=== PATIENT | male | born 1965 | race Caucasian/White ===

== ENCOUNTER → 2016-09-21 | Outpatient (REF) | payer OTHER ==
[2016-09-21 19:03] LABS: ALBUMIN/GLOBULIN RATIO 1.33 (1.00-1.93); ALKALINE PHOSPHATASE 132 U/L (45-117); ALT/SGPT 70 U/L (12-78); ANION GAP 10 MEQ/L (8-16); AST/SGOT 27 U/L (15-37); BILIRUBIN,TOTAL 0.7 MG/DL (0.2-1.0); BLOOD UREA NITROGEN 9 MG/DL (7-18); CALCIUM LEVEL 8.6 MG/DL (8.5-10.1); CARBON DIOXIDE LEVEL 26 MEQ/L (21-32); CHLORIDE LEVEL 106 MEQ/L (98-107); CHOLESTEROL LEVEL 127 MG/DL (<200); CREATININE FOR GFR 1.09 MG/DL (0.70-1.30); GLOMERULAR FILTRATION RATE > 60.0 (>56); GLUCOSE, FASTING 86 MG/DL (70-105); POTASSIUM SERUM 4.4 MEQ/L (3.5-5.1); SODIUM LEVEL 142 MEQ/L (136-145); TRIGLYCERIDES LEVEL 148 MG/DL (<150)
[2016-09-23 11:27] LABS: HEP C VIRUS AB SCREEN MEDICARE 0.1 INDEX (<0.8)
== END ==
LOC: M LABDRAW1 15:36
PROVIDERS: ATTEND Physician Assistant Medical
DX: E78.2 Mixed hyperlipidemia (principal); E11.59 Type 2 diabetes mellitus with other circulatory complications

== ENCOUNTER → 2016-10-19 | Outpatient (REF) | payer OTHER ==
[2016-10-19 20:17] LABS: FREE T4 0.81 NG/DL (0.76-1.46)
== END ==
LOC: M LABDRAW1 15:42
PROVIDERS: ATTEND Physician Assistant Medical
DX: R53.83 Other fatigue (principal)

== ENCOUNTER → 2018-02-08 | Outpatient (CLI) | payer OTHER ==
[2018-02-08 15:50] LABS: BASO # 0.1 10^3/uL (0.0-0.2); EOS # 0.1 10^3/uL (0.0-0.50); EOS % 1.3 % (0.0-3.0); HEMATOCRIT 49.4 % (42.0-52.0); HEMOGLOBIN 16.9 g/dl (13.5-17.5); IMMATURE GRANULOCYTE % 0.6 % (0-3.0); LYMPH # 1.6 10^3/uL (1.5-4.5); LYMPH % 23.8 % (24.0-44.0); MEAN CORPUSCULAR HEMOGLOBIN 29.7 pg (27.0-33.0); MEAN CORPUSCULAR HGB CONC 34.2 g/dl (32.0-36.5); MEAN CORPUSCULAR VOLUME 86.8 fl (80.0-96.0); MONO # 0.5 10^3/uL (0.0-0.8); NEUTROPHILS # 4.6 10^3/uL (1.8-7.7); NEUTROPHILS % 66.3 % (36.0-66.0); PLATELET COUNT, AUTOMATED 268 10^3/uL (150-450); RED BLOOD COUNT 5.69 10^6/uL (4.30-6.10); RED CELL DISTRIBUTION WIDTH 12.4 % (11.5-14.5); WHITE BLOOD COUNT 6.9 10^3/uL (4.0-10.0)
[2018-02-08 16:25] LABS: ALBUMIN 4.1 GM/DL (3.2-5.2); ALBUMIN/GLOBULIN RATIO 1.14 (1.00-1.93); ALKALINE PHOSPHATASE 113 U/L (45-117); ALT/SGPT 63 U/L (12-78); ANION GAP 8 MEQ/L (8-16); AST/SGOT 25 U/L (7-37); BILIRUBIN,TOTAL 0.8 MG/DL (0.2-1.0); BLOOD UREA NITROGEN 12 MG/DL (7-18); CALCIUM LEVEL 9.6 MG/DL (8.5-10.1); CARBON DIOXIDE LEVEL 28 MEQ/L (21-32); CHLORIDE LEVEL 106 MEQ/L (98-107); CREATININE FOR GFR 1.06 MG/DL (0.70-1.30); GLOMERULAR FILTRATION RATE > 60.0 (>56); GLUCOSE, FASTING 123 MG/DL (70-100); POTASSIUM SERUM 4.3 MEQ/L (3.5-5.1); SODIUM LEVEL 142 MEQ/L (136-145); TOTAL PROTEIN 7.7 GM/DL (6.4-8.2)
[2018-02-08 16:51] LABS: FOLATE 12.6 NG/ML
[2018-02-14 08:09] LABS: VITAMIN B6,PYRIDOXAL PHOSPHATE 3.4 ug/L (5.3-46.7)
== END ==
LOC: M WUC 14:32
DX: K14.6 Glossodynia (principal)

== ENCOUNTER 2018-10-24 21:02 | Emergency (ER) | payer OTHER ==
[~2018-10-24] VITALS: Ht 205.7 cm; Wt 122.0 kg
[2018-10-24 21:55] LABS: HEMOGLOBIN 17.2 g/dl (13.5-17.5); MEAN CORPUSCULAR HEMOGLOBIN 30.1 pg (27.0-33.0); MEAN CORPUSCULAR HGB CONC 34.4 g/dl (32.0-36.5); MEAN CORPUSCULAR VOLUME 87.6 fl (80.0-96.0); PLATELET COUNT, AUTOMATED 260 10^3/uL (150-450); RED BLOOD COUNT 5.71 10^6/uL (4.30-6.10); WHITE BLOOD COUNT 10.2 10^3/uL (4.0-10.0)
--- NOTE | 2018-10-24 22:06 | ECGEPIP ---
[facility] - ED Test Date: 2018-10-24 Pat Name: YORDAN MCLAUGHLIN Department: Room: - Gender: Male Laboratory Director: [place] : 1965 Requested By: HEMAL STUART Order Number: [id number] Reading MD: Bart Maldonado Measurements Intervals [place] Rate: 74 P: 14 NH: 140 QRS: 18 QRSD: 85 T: QT: 375 QTc: 418 Interpretive Statements SINUS RHYTHM NONSPECIFIC T-WAVE ABNORMALITY Comparison tracing not on file Electronically Signed on 10-24-2018 22:06:08 EDT by Bart Maldonado
[2018-10-24 22:24] LABS: ALT/SGPT 72 U/L (12-78); BILIRUBIN,DIRECT < 0.1 MG/DL (0.0-0.2); BILIRUBIN,TOTAL 0.4 MG/DL (0.2-1.0); BLOOD UREA NITROGEN 17 MG/DL (7-18); CALCIUM LEVEL 8.5 MG/DL (8.5-10.1); CARBON DIOXIDE LEVEL 25 MEQ/L (21-32); CHLORIDE LEVEL 104 MEQ/L (98-107); CREATININE FOR GFR 1.08 MG/DL (0.70-1.30); GLOMERULAR FILTRATION RATE > 60.0 (>56); GLUCOSE, FASTING 147 MG/DL (70-100); POTASSIUM SERUM 3.9 MEQ/L (3.5-5.1); SALICYLATE LEVEL < 1.7 MG/DL (5.0-30.0); SODIUM LEVEL 139 MEQ/L (136-145); TOTAL PROTEIN 7.7 GM/DL (6.4-8.2)
[2018-10-24 22:25] LABS: ACETAMINOPHEN LEVEL < 2.0 UG/ML (10.0-30.0); ETHYL ALCOHOL (ETHANOL) < 0.003 % (0.000-0.010)
[2018-10-24] MEDS ORDERED: clonazePAM 0.5 MG TAB PO ONE (22:30)
[2018-10-24 23:16] VITALS: BP 151/70
== END 2018-10-24 23:17 | disposition home or self-care (01) ==
LOC: M ED 21:02
DX: F41.1 Generalized anxiety disorder (principal); F43.10 Post-traumatic stress disorder, unspecified; Z91.030 Bee allergy status
CPT/HCPCS: 36415; 80048; 80076; 84443; 85027; 93005; 99284; G0480

== ENCOUNTER → 2019-04-24 | Outpatient (CLI) | payer OTHER ==
--- NOTE | 2019-04-24 17:00 | REP ---
MRI lumbar spine without contrast: History: Degenerative disc disease. Pain radiating to the hips. Comparison lumbar spine radiographs September 10, 2012. No other prior lumbar spine imaging. Technique: Sagittal and axial T1 and T2-weighted scans are acquired in the usual fashion with and without fat saturation. Sequences include spin echo, turbo spin-echo, and STIR imaging sequences. MRI findings: There is extensive cellular marrow pattern diffusely. No bony destructive lesion is seen. Vertebral body heights are preserved. Alignment is normal. There is no evidence of spondylolysis or spondylolisthesis. No extra vertebral abnormalities observed. Normal caliber aorta is seen. The tip of the conus medullaris is normal in position and appearance at T12-L1. There is mild degenerative disc disease at each lumbar level most pronounced at L4-5. Axial and sagittal images at L1-2 demonstrate minimal diffuse disc bulging but no other finding. Similarly the L2-3, level shows minimal disc bulging but is otherwise unremarkable. L3-4 disc level shows mild diffuse disc bulging. No foraminal narrowing or central canal stenosis is seen. At L4-5, there is a moderate sized central focal disc protrusion with a caudally extruded fragment extending over the posterior aspect of the L5 vertebral body just to the right of midline. This produces moderate thecal sac compression. There is moderate central canal stenosis due to left paracentral disc protrusion component and ligamentum flavum and facet hypertrophy. Midline AP dimension of the thecal sac at this level is 9.5 mm. No foraminal narrowing is seen on either side. At L5-S1, there is moderate facet hypertrophy bilaterally, left worse than right. There is minimal neural foraminal narrowing bilaterally 5-1 due to facet hypertrophy. Impression: Degenerative spondylosis changes. The dominant abnormality is at L4-5 where there is moderate central canal stenosis due in part to a [id number] focal disc protrusion with both left and right paracentral components. There is caudal extrusion and moderate thecal sac compression. Electronically Signed by Kirill Gatica MD 04/25/2019 12:39 P
== END ==
LOC: M RAD 14:49
PROVIDERS: ATTEND Physician Assistant
DX: M51.36 Other intervertebral disc degeneration, lumbar region (principal)

== ENCOUNTER → 2019-05-02 | Outpatient (CLI) | payer OTHER ==
[~2019-05-02] MED LIST: CONRAY-43 43% 50ML VIAL (Q9960) As Ordered ONE; PROHANCE 279.3MG/ML 5ML VIAL (A9576) As Ordered ONE
--- NOTE | 2019-05-02 09:33 | REP ---
MRI ARTHROGRAM RIGHT HIP: TECHNIQUE: Coronal T1, STIR through the pelvis, post arthrogram axial T1 fat sat, T2 fat sat, coronal T1 fat sat, T2 fat sat, sagittal T1 fat sat, axial oblique T1 fat sat right hip. The visualized osseous structures demonstrate no occult fracture. There is no evidence of avascular necrosis. There is mild to moderate chondromalacia of the right hip joint. There is mild subchondral marrow edema in the right acetabulum. There is mild acetabular spurring. There is an anterior labral tear. There is no paralabral cyst. There is a very small joint effusion. Other surrounding soft-tissue structures demonstrate no abnormal signa. The visualized intrapelvic structures are unremarkable. IMPRESSION: Anterior labral tear. 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 Very small joint effusion. Electronically Signed by Werner Rodriguez MD 05/02/2019 12:47 P
--- NOTE | 2019-05-02 16:53 | REP ---
RIGHT HIP ARTHROGRAM The procedure was performed under the direction supervision of Dr. Rodriguez. The benefits and risks including but not limited to pain, infection, bleeding and anaphylaxis were explained to the patient and informed consent was obtained. The right femoral neck was localized using fluoroscopic guidance. Skin was prepped and draped in a sterile fashion. 1% lidocaine was used as a local anesthetic. Using fluoroscopic guidance a 22 gauge spinal needle was inserted and advanced to the femoral neck. 0.5 ml of Conray 43 was injected to verify placement. 11 ml of a solution containing 20 ml of sterile saline and 0.15 ml of ProHance was injected into the joint. The needle was removed and the patient was taken to MRI for postprocedural imaging. The patient tolerated the procedure well and there were no immediate complications. Less than 6 seconds of fluoro time was utilized for this procedure. Electronically Signed by ANGELA Wayne 05/02/2019 04:02 P Electronically Signed by Werner Rodriguez MD 05/02/2019 04:44 P
== END ==
LOC: M RADPRO 06:42
PROVIDERS: ATTEND Physician Assistant
DX: S76.191A Other specified injury of right quadriceps muscle, fascia and tendon, initial encounter (principal); X58.XXXA Exposure to other specified factors, initial encounter; Y92.89 Other specified places as the place of occurrence of the external cause; Y93.89 Activity, other specified; Y99.8 Other external cause status; M94.251 Chondromalacia, right hip; M25.451 Effusion, right hip
CPT/HCPCS: 27093; 73723; 77002; A9576; Q9960

== ENCOUNTER → 2019-05-24 | Outpatient (CLI) | payer OTHER ==
[~2019-05-24] MED LIST changes: +LIDOCAINE 1% MDV 20ML VIAL As Ordered ONE; -PROHANCE 279.3MG/ML 5ML VIAL (A9576) As Ordered ONE; +TRIAMCINOLONE ACETONIDE SUSP 40 MG/ML VIAL (J3301) As Ordered ONE
--- NOTE | 2019-05-24 17:16 | REP ---
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 Rodriguez. The benefits and risks including but not limited to pain, infection, bleeding and anaphylaxis were explained to the patient and informed consent was obtained both verbally and written. Directly prior to the start of the procedure, a formal timeout was completed in the procedure room. The right femoral neck joint space was localized using fluoroscopic guidance. The skin was prepped and draped in the usual sterile fashion. 5 mL of 1% lidocaine 10 mg/ml was used as a local anesthetic. Using fluoroscopic guidance a 22-gauge spinal needle was inserted and advanced to the right femoral neck joint space . 1 mL of Conray 43 was injected to verify needle placement. A 6 mL solution containing a 5 mL 1% lidocaine 10 mg/ml and 1 ml of Kenalog 40 mg/ml was injected into the joint. The needle was removed and hemostasis was achieved. The patient tolerated the procedure well and there were no immediate complications. 0.1 minutes of fluoroscopy time was utilized for this procedure. Some fluoroscopic images are performed with last image hold technology. These images require no additional radiation. Reviewed by ANGELA Coronado 05/24/2019 04:04 P Electronically Signed by Werner Rodriguez MD 05/24/2019 05:08 P
== END ==
LOC: M RADPRO 12:43
PROVIDERS: ATTEND Physician Assistant
DX: M24.151 Other articular cartilage disorders, right hip (principal)
CPT/HCPCS: 20610; 77002; J3301; Q9960

== ENCOUNTER → 2019-09-13 | Outpatient (CLI) | payer OTHER ==
--- NOTE | 2019-09-13 11:13 | REP ---
BILATERAL MAMMOGRAM WITH 3D TOMOSYNTHESIS: Patient reports a 1-month history of a tiny superficial skin lesion in the left nipple. Bilateral mammogram is performed with 3D tomosynthesis. The breasts are prominently fatty replaced with minimal fibroglandular tissue. There is no mass or architectural distortion. No clustered microcalcifications are seen. No abnormality is seen of either nipple. IMPRESSION: BIRADS 1: BI-RADS/ACR category 1 mammogram. Negative Mammogram. ACR 1 negative mammogram. No mammographic abnormalities are detected. Recommend clinical followup of the superficial skin lesion of the left nipple. This mammogram was interpreted with the aid of an FDA-approved computer-aided detection system. A. Negative x-ray reports should not delay biopsy if a dominant or clinically suspicious mass is present. B. Four to eight percent of cancers are not identified by x-ray. C. Adenosis and dense breasts may obscure an underlying neoplasm. The patient states that she or he has not had a clinical breast exam in over a year. The patient letter being requested is M2
== END ==
LOC: M WHC 08:13
PROVIDERS: ATTEND Nurse Practitioner Family
DX: N63.20 Unspecified lump in the left breast, unspecified quadrant (principal)

== ENCOUNTER → 2021-03-25 | Outpatient (CLI) | payer OTHER ==
[~2021-03-25] MED LIST changes: +ATOR1TAB21 PO; +CLON0.5T2 PO; -CONRAY-43 43% 50ML VIAL (Q9960) As Ordered ONE; +ERGO500029 PO; -LIDOCAINE 1% MDV 20ML VIAL As Ordered ONE; +MIRT1TAB15 PO; -TRIAMCINOLONE ACETONIDE SUSP 40 MG/ML VIAL (J3301) As Ordered ONE
== END ==
LOC: M LABSMTC 09:05
PROVIDERS: ATTEND Anesthesiology
DX: Z01.812 Encounter for preprocedural laboratory examination (principal); Z20.822 Contact with and (suspected) exposure to COVID-19

== ENCOUNTER 2021-03-30 09:35 | Day surgery (SDC) | payer OTHER ==
[~2021-03-30] VITALS: Ht 185.4 cm; Wt 118.8 kg
[~2021-03-30 09:35] MED LIST changes: +NS 1,000 ML IV ONE
--- OUTSIDE RECORDS SUMMARY | 2021-03-30 09:41 | CCD ---
Author Author [facility] Address Unknown Phone Unavailable Care Team Providers Care Spice Blender Name Role Phone Dru, Darby Pena MD Unavailable Unavailable Dru, Darby Pena MD Unavailable Unavailable Dru, Darby Pena MD Unavailable Unavailable Dru, Darby Pena MD Unavailable Unavailable Dru, Darby Pena MD Unavailable Unavailable Dru, Darby Pena MD Unavailable Unavailable Dru, Darby Pena MD Unavailable Unavailable Dru, Darby Pena MD Unavailable Unavailable Dru, Darby Pena MD Unavailable Unavailable Dru, Darby Pena MD Unavailable Unavailable Dru, Darby Pena MD Unavailable Unavailable Dru, Darby Pena MD Unavailable Unavailable Dru, Darby Pena MD Unavailable Unavailable Dru, Darby Pena MD Unavailable Unavailable Dru, Darby Pena MD Unavailable Unavailable Dru, Darby Pena MD Unavailable Unavailable Dru, Darby Pena MD Unavailable Unavailable Dru, Darby Pena MD Unavailable Unavailable Dru, Darby Pena MD Unavailable Unavailable Dru, Darby Pena MD Unavailable Unavailable Dru, Darby Pena MD Unavailable Unavailable Dru, Darby Pena MD Unavailable Unavailable Dru, Darby Pena MD Unavailable Unavailable Dru, Darby Pena MD Unavailable Unavailable Dru, Darby Pena MD Unavailable Unavailable Dru, Darby Pena MD Unavailable Unavailable Dru, Darby Pena MD Unavailable Unavailable Dru, Darby Pena MD Unavailable Unavailable Dru, Darby Pena MD Unavailable Unavailable Dru, Darby Pena MD Unavailable Unavailable Dru, Darby Pena MD Unavailable Unavailable Dru, Darby Pena MD Unavailable Unavailable Dru, Darby Pena MD Unavailable Unavailable Dru, Darby Pena MD Unavailable Unavailable Dru, Darby Pena MD Unavailable Unavailable Dru, Darby Pena MD Unavailable Unavailable Dru, Darby Pena MD Unavailable Unavailable Dru, Darby Pena MD Unavailable Unavailable Dru, Darby Pena MD Unavailable Unavailable Dru, Darby Pena MD Unavailable Unavailable Dru, Darby Pena MD Unavailable Unavailable Dru, Darby Pena MD Unavailable Unavailable Dru, Darby Pena MD Unavailable Unavailable Dru, Darby Pena MD Unavailable Unavailable Dru, Darby Pena MD Unavailable Unavailable Dru, Darby Pena MD Unavailable Unavailable Dru, Darby Pena MD Unavailable Unavailable Dru, Darby Pena MD Unavailable Unavailable Dru, Darby Pena MD Unavailable Unavailable Dru, Darby Pena MD Unavailable Unavailable Dru, Darby Pena MD Unavailable Unavailable Dru, Darby Pena MD Unavailable Unavailable Dru, Darby Pena MD Unavailable Unavailable Dru, Darby Pena MD Unavailable Unavailable Dru, Darby Pena MD Unavailable Unavailable Dru, Darby Pena MD Unavailable Unavailable Dru, Darby Pena MD Unavailable Unavailable Dru, Darby Pena MD Unavailable Unavailable Dru, Darby Pena MD Unavailable Unavailable Dru, Darby Pena MD Unavailable Unavailable Dru, Darby Pena MD Unavailable Unavailable Dru, Darby Pena MD Unavailable Unavailable Dru, Darby Pena MD Unavailable Unavailable Dru, Darby Pena MD Unavailable Unavailable Dru, Darby Pena MD Unavailable Unavailable Dru, Darby Pena MD Unavailable Unavailable Dru, Darby Pena MD Unavailable Unavailable Dru, Darby Pena MD Unavailable Unavailable Dru, Darby Pena MD Unavailable Unavailable Dru, Darby Pena MD Unavailable Unavailable Dru, Darby Pena MD Unavailable Unavailable Dru, Darby Pena MD Unavailable Unavailable Dru, Darby Pena MD Unavailable Unavailable Dru, Darby Pena MD Unavailable Unavailable Dru, Darby Pena MD Unavailable Unavailable Dru, Darby Pena MD Unavailable Unavailable Dru, Darby Pena MD Unavailable Unavailable Dru, Darby Pena MD Unavailable Unavailable Dru, Darby Pena MD Unavailable Unavailable Dru, Darby Pena MD Unavailable Unavailable Dru, Darby Pena MD Unavailable Unavailable Dru, Darby Pena MD Unavailable Unavailable DRAZEK, I WILTON PA Unavailable Unavailable DRAZEK, I WILTON PA Unavailable Unavailable DRAZEK, I WILTON PA Unavailable Unavailable DRAZEK, I WILTON PA Unavailable Unavailable DRAZEK, I WILTON PA Unavailable Unavailable DRAZEK, I WILTON PA Unavailable Unavailable DRAZEK, I WILTON PA Unavailable Unavailable DRAZEK, I WILTON PA Unavailable Unavailable DRAZEK, I WILTON PA Unavailable Unavailable DRAZEK, I WILTON PA Unavailable Unavailable DRAZEK, I WILTON PA Unavailable Unavailable DRAZEK, I WILTON PA Unavailable Unavailable DRAZEK, I WILTON PA Unavailable Unavailable DRAZEK, I WILTON PA Unavailable Unavailable DRAZEK, I WILTON PA Unavailable Unavailable DRAZEK, I WILTON PA Unavailable Unavailable DRAZEK, I WILTON PA Unavailable Unavailable DRAZEK, I WILTON PA Unavailable Unavailable DRAZEK, I WILTON PA Unavailable Unavailable DRAZEK, I WILTON PA Unavailable Unavailable DRAZEK, I WILTON PA Unavailable Unavailable DRAZEK, I WILTON PA Unavailable Unavailable DRAZEK, I WILTON PA Unavailable Unavailable DRAZEK, I WILTON PA Unavailable Unavailable DRAZEK, I WILTON PA Unavailable Unavailable DRAZEK, I WILTON PA Unavailable Unavailable DRAZEK, I WILTON PA Unavailable Unavailable DRAZEK, I WILTON PA Unavailable Unavailable DRAZEK, I WILTON PA Unavailable Unavailable DRAZEK, I WILTON PA Unavailable Unavailable Re-disclosure Warning The records that you are about to access may contain information from federally-assisted alcohol or drug abuse programs. If such information is present, then the following federally mandated warning applies: This information has been disclosed to you from records protected by federal confidentiality rules (42 CFR part 2). The federal rules prohibit you from making any further disclosure of this information unless further disclosure is expressly permitted by the written consent of the person to whom it pertains or as otherwise permitted by 42 CFR part 2. A general authorization for the release of medical or other information is NOT sufficient for this purpose. The Federal rules restrict any use of the information to criminally investigate or prosecute any alcohol or drug abuse patient.The records that you are about to access may contain highly sensitive health information, the redisclosure of which is protected by Article 27-F of the [facility] Public Health law. If you continue you may have access to information: Regarding HIV / AIDS; Provided by facilities licensed or operated by the [facility] Office of Mental Health; or Provided by the [facility] Office for People With Developmental Disabilities. If such information is present, then the following [facility] mandated warning applies: This information has been disclosed to you from confidential records which are protected by state law. State law prohibits you from making any further disclosure of this information without the specific written consent of the person to whom it pertains, or as otherwise permitted by law. Any unauthorized further disclosure in violation of state law may result in a fine or senior living sentence or both. A general authorization for the release of medical or other information is NOT sufficient authorization for further disc losure. Family History Family Member Name Family Member Gender Family Member Status Date o f Status Description Data Source(s) Unknown Unknown Problem [facility] ([facility] Unknown Unknown Problem [facility] ([facility] Unknown Unknown Encounters Encounter Providers Location Date Indications Data Source(s ) Outpatient [address], [facility] [id number] 12/16/2020 12:00:00 AM EDT eCW1 ([facility]) Outpatient Attender: Becky Gonsales MD Main Office 06/09/2020 09:30:0 0 AM EST [facility] ([facility] Outpatient Attender: WILTON SCHMITT Physical Therapy 04/01/2020 1 2:15:00 PM EST [facility] ([facility]) Immunizations Vaccine Date Status Description Data Source(s) COVID-19 VACCINE Moderna 11/18/2020 12:00:00 AM EDT completed [facility] Vaccine Series Complete: YESThis Data wa s Submitted to [facility]. COVID-19 VACCINE Moderna 10/21/2020 12:00:00 AM EDT completed [facility] Vaccine Series Complete: NOThis Data was Submitted to [facility]. New in 2012. IIV4 06/09/2020 09:49:00 AM EST completed [facility] ([facility] Medications Medication Brand Name Start Date Product Form Dose Route Admi nistrative Instructions Pharmacy Instructions Status Indications Reaction Description Data Source(s) Suprep Bowel Prep Kit Suprep Bowel Prep Kit 03/02/2021 12:00:00 AM EDT active [facility] ([facility], ) Bisacodyl 5 MG Delayed Release Oral Tablet [Dulcolax] Dulcol ax 03/02/2021 12:00:00 AM EDT ORAL active M EDENT ([facility], ) meloxicam 15 MG Oral Tablet Meloxicam 04/01/2020 12:00:00 AM EST ORAL active [facility] ([facility]) Insurance Providers Payer name Policy type / Coverage type Policy ID Covered green party ID Covered green party's relationship to gonzales Policy Gonzales Plan Information [facility] Commercial [id number] Self [id number] [facility] Commercial [id number] Self [id number] [facility] [id number] SP [id number] [facility] O [id number] [employer] Commercial [id number] Self [id number] [facility] [id number] Self [id number] [employer] [id number] Self [id number] [facility] Commercial [id number] Self [id number] [facility] Health Maintenance Organization ([facility]) 00 [id number] [facility] Commercial [id number] [facility] Commercial [id number] Self [id number] [facility] Health Maintenance Organization ([facility]) 00 [id number] Self [id number] [facility] Health Maintenance Organization ([facility]) [id number] [facility] Commercial [id number] Self [facility] Commercial [id number] Self 'S ADMINISTRATION [id number] SP [id number] [facility] [id number] SP [id number] [id number] SP [id number] Problems, Conditions, and Diagnoses No Information Surgeries/Procedures Procedure Description Date Indications Data Source(s) X-Ray Hip Unilateral With Pelvis 2-3 Views 04/01/2020 12:00:00 AM EST [facility] ([facility]) Results ID Date Data Source [id number] 03/25/2021 09:00:00 AM EDT [facility] Name Value Range Interpretation Code Description Data Beverley rce(s) Supporting Document(s) SARS-CoV-2 (COVID-19) RNA [Presence] in Respiratory specimen by TAMMI with probe detection Not Detected [facility] This lab was ordered by [facility] and reported by [facility]. ID Date Data Source [id number] 06/09/2020 01:05:00 PM EST [facility] ([facility] Name Value Range Interpretation Code Description Data Beverley rce(s) Supporting Document(s) Glucose [Mass/volume] in Serum or Plasma 86 mg/dL 65-99 [facility] ([facility] A courtesy copy of this report has been sent to the patient, Urea nitrogen [Mass/volume] in Serum or Plasma 16 mg/dL 6-24 [facility] ([facility] A courtesy copy of this report has been sent to the patient, eGFR If NonAfricn Am 71 mL/min/1.73 [facility] ([facility] A courtesy copy of this report has been sent to the patient, Creatinine [Mass/volume] in Serum or Plasma 1.15 mg/dL 0.76-1.27 [facility] ([facility] A courtesy copy of this report has been sent to the patient, Sodium [Moles/volume] in Serum or Plasma 139 mmol/L 134-144 [facility] ([facility] A courtesy copy of this report has been sent to the patient, eGFR If Africn Am 82 mL/min/1.73 [facility] ([facility] A courtesy copy of this report has been sent to the patient, Urea nitrogen/Creatinine [Mass Ratio] in Serum or Plasma 14 9 -20 [facility] ([facility] A courtesy copy of this report has been sent to the patient, Carbon dioxide, total [Moles/volume] in Serum or Plasma 22 mmol/L 20 -29 [facility] ([facility] A courtesy copy of this report has been sent to the patient, Chloride [Moles/volume] in Serum or Plasma 102 mmol/L 96-106 [facility] ([facility] A courtesy copy of this report has been sent to the patient, Potassium [Moles/volume] in Serum or Plasma 4.4 mmol/L 3.5-5.2 [facility] ([facility] A courtesy copy of this report has been sent to the patient, Calcium [Mass/volume] in Serum or Plasma 9.6 mg/dL 8.7-10.2 [facility] ([facility] A courtesy copy of this report has been sent to the patient, Protein, Total 7.4 g/dL 6.0-8.5 [facility] ([facility] A courtesy copy of this report has been sent to the patient, Albumin [Mass/volume] in Serum or Plasma 4.6 g/dL 3.8-4.9 [facility] ([facility] A courtesy copy of this report has been sent to the patient, Globulin [Mass/volume] in Serum by calculation 2.8 g/dL 1.5-4.5 [facility] ([facility] A courtesy copy of this report has been sent to the patient, Albumin/Globulin [Mass Ratio] in Serum or Plasma 1.6 1.2-2.2 [facility] ([facility] A courtesy copy of this report has been sent to the patient, Alkaline phosphatase [Enzymatic activity/volume] in Serum or Plasma 105 IU/L 39-117 [facility] ([facility] A courtesy copy of this report has been sent to the patient, Bilirubin.total [Mass/volume] in Serum or Plasma 0.7 mg/dL 0.0-1.2 [facility] ([facility] A courtesy copy of this report has been sent to the patient, Aspartate aminotransferase [Enzymatic activity/volume] in Serum or Plasma 31 IU/L 0-40 [facility] ([facility] A courtesy copy of this report has been sent to the patient, Alanine aminotransferase [Enzymatic activity/volume] in Seru m or Plasma 69 IU/L 0-44 [facility] ([facility] A courtesy copy of this report has been sent to the patient, ID Date Data Source [id number] 06/09/2020 01:05:00 PM EST [facility] ([facility] Name Value Range Interpretation Code Description Data Beverley rce(s) Supporting Document(s) Hemoglobin A1c/Hemoglobin.total in Blood 5.1 % 4.8-5.6 [facility] ([facility] A courtesy copy of this report has been sent to the patient, ID Date Data Source [id number] 06/09/2020 01:05:00 PM EST [facility] ([facility] Name Value Range Interpretation Code Description Data Beverley rce(s) Supporting Document(s) Thyrotropin [Units/volume] in Serum or Plasma 1.920 uIU/mL 0.450-4.50 0 [facility] ([facility] A courtesy copy of this report has been sent to the patient, ID Date Data Source [id number] 06/09/2020 01:05:00 PM EST [facility] ([facility] Name Value Range Interpretation Code Description Data Beverley rce(s) Supporting Document(s) Triglyceride [Mass/volume] in Serum or Plasma 156 mg/dL 0-149 [facility] ([facility] A courtesy copy of this report has been sent to the patient, Cholesterol [Mass/volume] in Serum or Plasma 146 mg/dL 100-199 [facility] ([facility] A courtesy copy of this report has been sent to the patient, Cholesterol in HDL [Mass/volume] in Serum or Plasma 37 mg/dL [facility] ([facility] A courtesy copy of this report has been sent to the patient, Laboratory test finding (navigational concept) 27 mg/dL 5-40 [facility] ([facility] A courtesy copy of this report has been sent to the patient, Comment: Laboratory test result [facility] ([facility] A courtesy copy of this report has been sent to the patient, Laboratory test finding (navigational concept) 82 mg/dL 0-99 [facility] ([facility] A courtesy copy of this report has been sent to the patient, ID Date Data Source [id number] 06/09/2020 01:05:00 PM EST [facility] ([facility] Name Value Range Interpretation Code Description Data Beverley rce(s) Supporting Document(s) Leukocytes [#/volume] in Blood by Automated count 6.6 x10E3/uL 3.4-10 .8 [facility] ([facility] A courtesy copy of this report has been sent to the patient, Erythrocytes [#/volume] in Blood by Automated count 5.52 x10E6/uL 4.1 4-5.80 [facility] ([facility] A courtesy copy of this report has been sent to the patient, Hemoglobin [Mass/volume] in Blood 16.4 g/dL 13.0-17.7 [facility] ([facility] A courtesy copy of this report has been sent to the patient, Hematocrit [Volume Fraction] of Blood by Automated count 47.7 % 3 7.5-51.0 [facility] ([facility] A courtesy copy of this report has been sent to the patient, Erythrocyte mean corpuscular hemoglobin [Entitic mass] by Automated count 29.7 pg 26.6-33.0 [facility] ([facility] A courtesy copy of this report has been sent to the patient, Erythrocyte mean corpuscular volume [Entitic volume] by Auto mated count 86 fL 79-97 [facility] ([facility] A courtesy copy of this report has been sent to the patient, Erythrocyte mean corpuscular hemoglobin concentration [Mass/volume] by Automated count 34.4 g/dL 31.5-35.7 [facility] ([facility] A courtesy copy of this report has been sent to the patient, Neutrophils 65 % [facility] ([facility] A courtesy copy of this report has been sent to the patient, Erythrocyte distribution width [Ratio] by Automated count 12.1 % 11.6-15.4 [facility] ([facility] A courtesy copy of this report has been sent to the patient, Platelets [#/volume] in Blood by Automated count 245 x10E3/uL 150-450 [facility] ([facility] A courtesy copy of this report has been sent to the patient, Monocytes/100 leukocytes in Blood by Automated count 7 % [facility] ([facility] A courtesy copy of this report has been sent to the patient, Lymphocytes/100 leukocytes in Blood by Automated count 26 % [facility] ([facility] A courtesy copy of this report has been sent to the patient, Eosinophils/100 leukocytes in Blood by Automated count 1 % [facility] ([facility] A courtesy copy of this report has been sent to the patient, Immature cells [#/volume] in Blood Laboratory test result [facility] ([facility] A courtesy copy of this report has been sent to the patient, Basophils/100 leukocytes in Blood by Automated count 1 % [facility] ([facility] A courtesy copy of this report has been sent to the patient, Neutrophils [#/volume] in Blood by Automated count 4.3 x10E3/uL 1.4-7 .0 [facility] ([facility] A courtesy copy of this report has been sent to the patient, Lymphocytes [#/volume] in Blood 1.7 x10E3/uL 0.7-3.1 [facility] ([facility] A courtesy copy of this report has been sent to the patient, Monocytes [#/volume] in Blood 0.4 x10E3/uL 0.1-0.9 [facility] ([facility] A courtesy copy of this report has been sent to the patient, Basophils [#/volume] in Blood by Automated count 0.1 x10E3/uL 0.0-0.2 [facility] ([facility] A courtesy copy of this report has been sent to the patient, Eosinophils [#/volume] in Blood by Automated count 0.1 x10E3/uL 0.0-0 .4 [facility] ([facility] A courtesy copy of this report has been sent to the patient, Immature granulocytes/100 leukocytes in Blood by Automated count 0 % [facility] ([facility] A courtesy copy of this report has been sent to the patient, Immature granulocytes [#/volume] in Blood by Automated count 0.0 x10E3/uL 0.0-0.1 [facility] ([facility] A courtesy copy of this report has been sent to the patient, Nucleated erythrocytes/100 leukocytes [Ratio] in Blood by Automated count Laboratory test result [facility] ([facility] A courtesy copy of this report has been sent to the patient, Morphology [Interpretation] in Blood Narrative Laboratory test result [facility] ([facility] A courtesy copy of this report has been sent to the patient, ID Date Data Source [id number] 06/10/2020 07:05:00 AM EST [facility] Name Value Range Interpretation Code Description Data Beverley rce(s) Supporting Document(s) WBC 6.6 x10E3/uL 3.4-10.8 [facility] RBC 5.52 x10E6/uL 4.14-5.80 [facility] Hemoglobin 16.4 g/dL 13.0-17.7 [facility] Hematocrit 47.7 % 37.5-51.0 [facility] MCV 86 fL 79-97 [facility] MCH 29.7 pg 26.6-33.0 [facility] MCHC 34.4 g/dL 31.5-35.7 [facility] RDW 12.1 % 11.6-15.4 [facility] Platelets 245 x10E3/uL 150-450 [facility] Neutrophils 65 % Not Estab. [facility] Lymphs 26 % Not Estab. [facility] Monocytes 7 % Not Estab. [facility] Eos 1 % Not Estab. [facility] Basos 1 % Not Estab. [facility] Neutrophils (Absolute) 4.3 x10E3/uL 1.4-7.0 [facility] Lymphs (Absolute) 1.7 x10E3/uL 0.7-3.1 [facility] Monocytes(Absolute) 0.4 x10E3/uL 0.1-0.9 [facility] Eos (Absolute) 0.1 x10E3/uL 0.0-0.4 [facility] Baso (Absolute) 0.1 x10E3/uL 0.0-0.2 [facility] Immature Granulocytes 0 % Not Estab. [facility] Immature Grans (Abs) 0.0 x10E3/uL 0.0-0.1 [facility] ID Date Data Source [id number] 06/10/2020 10:06:00 AM EST [facility] Name Value Range Interpretation Code Description Data Beverley rce(s) Supporting Document(s) Hemoglobin A1c 5.1 % 4.8-5.6 [facility] Prediabetes: 5.7 - 6.4 Diabetes: >6.4 Glycemic control for adults with diabetes: <7.0 ID Date Data Source [id number] 06/10/2020 04:06:00 PM EST [facility] Name Value Range Interpretation Code Description Data Beverley rce(s) Supporting Document(s) Glucose 86 mg/dL 65-99 [facility] BUN 16 mg/dL 6-24 [facility] Creatinine 1.15 mg/dL 0.76-1.27 [facility] eGFR If NonAfricn Am 71 mL/min/1.73 >59 [facility] eGFR If Africn Am 82 mL/min/1.73 >59 [facility] BUN/Creatinine Ratio 14 9-20 [facility] Sodium 139 mmol/L 134-144 [facility] Potassium 4.4 mmol/L 3.5-5.2 [facility] Chloride 102 mmol/L 96-106 [facility] Carbon Dioxide, Total 22 mmol/L 20-29 [facility] Calcium 9.6 mg/dL 8.7-10.2 [facility] Protein, Total 7.4 g/dL 6.0-8.5 [facility] Albumin 4.6 g/dL 3.8-4.9 [facility] Globulin, Total 2.8 g/dL 1.5-4.5 [facility] A/G Ratio 1.6 1.2-2.2 [facility] Bilirubin, Total 0.7 mg/dL 0.0-1.2 [facility] Alkaline Phosphatase 105 IU/L 39-117 [facility] AST (SGOT) 31 IU/L 0-40 [facility] ALT (SGPT) 69 IU/L 0-44 Above high normal [facility] ID Date Data Source [id number] 06/10/2020 05:05:00 PM EST [facility] Name Value Range Interpretation Code Description Data Beverley rce(s) Supporting Document(s) TSH 1.920 uIU/mL 0.450-4.500 [facility] ID Date Data Source [id number] 06/10/2020 04:06:00 PM EST [facility] Name Value Range Interpretation Code Description Data Beverley rce(s) Supporting Document(s) Cholesterol, Total 146 mg/dL 100-199 [facility] Triglycerides 156 mg/dL 0-149 Above high normal [facility] HDL Cholesterol 37 mg/dL >39 Below low normal [facility] VLDL Cholesterol Ross 27 mg/dL 5-40 [facility] LDL Chol Calc (NIH) 82 mg/dL 0-99 [facility] Procedure Social History Code Duration Value Status Description Data Source(s ) Smoking 12/16/2020 12:00:00 AM EDT Never Smoker completed Never S radha eCW1 ([facility]) Smoking 07/15/2020 12:00:00 AM EST Patient has never smoked co mpleted Patient has never smoked [facility] ([facility]) Smoking 06/09/2020 12:00:00 AM EST Patient has never smoked co mpleted Patient has never smoked [facility] ([facility] Vital Signs ID Date Data Source UNK Name Value Range Interpretation Code Description Data Source(s) Body weight 121.111 kg 121.111 kg [facility] ([facility]) Body surface area Derived from formula 2.41 m2 2.41 m2 [facility] [facility] ([facility]) Systolic blood pressure 136 mm[Hg] 136 mm[Hg] [facility] ([facility]) Diastolic blood pressure 86 mm[Hg] 86 mm[Hg] [facility] ([facility]) Body height 72 [in_i] 72 [in_i] [facility] ([facility]) 6'0" Body weight 267.00 [lb_av] 267.00 [lb_av] [facility] ([facility]) Body mass index (BMI) [Ratio] 36.2 kg/m2 36.2 k g/m2 [facility] ([facility]) [place] body weight 178 [lb_av] 178 [lb_av] [facility] ([facility]) Body mass index (BMI) [Ratio] 35.31 kg/m2 35.31 kg/m2 eCW1 ([facility]) Body weight 260.4 [lb_av] 260.4 [lb_av] eCW1 ([facility]) Body height [in_i] eCW1 ([facility] Systolic blood pressure 130 mm[Hg] 130 mm[Hg] e CW1 ([facility]) Diastolic blood pressure 78 mm[Hg] 78 mm[Hg] eCW1 ([facility]) Body height 71 [in_i] 71 [in_i] [facility] ([facility]) 5'11" Systolic blood pressure 120 mm[Hg] 120 mm[Hg] [facility] ([facility]) Diastolic blood pressure 82 mm[Hg] 82 mm[Hg] [facility] ([facility]) Heart rate 72 /min 72 /min [facility] ([facility]) Oxygen saturation in Arterial blood by Pulse oximetry 96 % 96 % [facility] Body temperature 97.1 [degF] 97.1 [degF] [facility] ([facility]) Body weight 255.00 [lb_av] 255.00 [lb_av] [facility] ([facility]) Body mass index (BMI) [Ratio] 35.6 kg/m2 35.6 k g/m2 [facility] ([facility]) [place] body weight 172 [lb_av] 172 [lb_av] [facility] ([facility]) Body weight 115.668 kg 115.668 kg [facility] ([facility]) Body surface area Derived from formula 2.34 m2 2.34 m2 [facility] ([facility]) Systolic blood pressure 132 mm[Hg] 132 mm[Hg] [facility] ([facility] Diastolic blood pressure 77 mm[Hg] 77 mm[Hg] [facility] ([facility] Heart rate 70 /min 70 /min [facility] ([facility] Body temperature 97.5 [degF] 97.5 [degF] [facility] ([facility] Respiratory rate 18 /min 18 /min [facility] ( [facility] Body height 72 [in_i] 72 [in_i] [facility] ([facility] 6'0" Body weight 267.12 [lb_av] 267.12 [lb_av] [facility] ([facility] Oxygen saturation in Arterial blood by Pulse oximetry 97 % 97 % [facility] ([facility] [place] body weight 178 [lb_av] 178 [lb_av] [facility] ([facility] Body mass index (BMI) [Ratio] 36.2 kg/m2 36.2 k g/m2 [facility] ([facility]
--- OUTSIDE RECORDS SUMMARY | 2021-03-30 09:41 | CCD | Continuity of Care Document ---
Author Author Teofilo [facility] Organization Unknown Address [address] [place] [address], [address] [place] [address] Phone [phone] Care Team Providers Care Cement Mason Name Role Phone Dominga Grant AUTM [phone] Becky Gonsales M.D. AUTM [phone] Reena Montenegro N.P. AUTM [phone] Problems Active Problems Provider Date Otitis externa Roderick Sanchez M.D. Onset: 06/16/2016 Impacted cerumen Rodeirck Sanchez M.D. Onset: 06/16/2016 Deviated nasal septum Roderick Sanchez M.D. Onset: 7 Tinnitus of right ear Roderick Sanchez M.D. Onset: 7 Hearing loss Roderick Sanchez M.D. Onset: 07/26/2016 Body mass index 30+ - obesity Bettina Real A.N.PEpi Onset: Obesity Bettina Real A.N.PEpi Onset: 10/19/2010 Obstructive sleep apnea syndrome Bettina Real A.N.Felicia Onset: 10/19/2010 Social History Type Date Description Comments Sex Unknown Smokeless Tobacco Never Used Smokeless Tobacco ETOH Use 12 Per month Tobacco Use Start: Unknown Non Smoker Recreational Drug Use Denies Drug Use Tobacco Use Start: Unknown Patient has never smoked Smoking Status Reviewed: 07/15/20 Patient has never smoked Allergies and adverse reactions Active Allergies Criticality Reaction | Severity Comments Date NKDA Unable to assess criticality 06/10/2016 Bee Sting Unable to assess criticality 10/14/2015 Medications Active Medications SIG Qnty Indications Ordering Provide r Date Suprep Bowel Prep Kit 17.5-3.13-1.6GM/177ML Solution take per doctor's bowel prep instructions. 354ml Z12.1 1 Bart Francisco MD 03/02/[address] take 4 tabs by mouth prior to procedure per instructions. 4tabs Z12.11 Bart Francisco MD 03/02/2021 CPAP Device 16cm CELESTE Flores 09/10/2019 Clonazepam 0.5mg Tablets Dispers tid as needed Unknown Mirtazapine 7.5mg Tablets Jennifer ly Unknown Immunizations CPT Code Status Date Vaccine Lot # [id number] Given 03/02/2011 Influenza Vaccine 3 Years Of Age Or Older (Flulaval) 37930 Given 04/09/2010 Influenza Virus Split 3 Yrs And Above For Intramuscular Use Vital Signs Date Vital Result Comment 03/02/2021 10:24am BP Systolic 136 mmHg BP Diastolic 86 mmHg Height 72 inches 6'0" Weight 267.00 lb BMI (Body Mass Index) 36.2 kg/m2 [place] Body Weight 178 lb Weight 121.111 kg BSA (Body Surface Area) 2.41 m2 07/15/2020 2:57pm BP Systolic 120 mmHg BP Diastolic 82 mmHg Heart Rate 72 /min O2 % BldC Oximetry 96 % Body Temperature 97.1 F Height 71 inches 5'11" Weight 255.00 lb BMI (Body Mass Index) 35.6 kg/m2 [place] Body Weight 172 lb Weight 115.668 kg BSA (Body Surface Area) 2.34 m2 Results Description No Information Available Procedures Description No Information Available Medical Devices Description No Information Available Encounters Description No Information Available Assessments Date Code Description Provider 03/02/2021 Z12.11 Encounter for screening for brittnee gnant neoplasm of colon NIRMAL Hurtado Plan of Treatment Future Appointment(s):* 07/15/2021 1:00 pm - CELESTE Ingram at [facility] Pulmonary/Thoracic 03/02/2021 - NIRMAL Hurtado* Z12.11 Encounter for screening for malignant neoplasm of colon * * New Medication:* Suprep Bowel Prep Kit 17.5-3.13-1.6 GM/177ML * Dulcolax 5 mg * New Orders:* Colonoscopy, Ordered: 03/02/21 * Comments:* Will arrange for colonoscopy. Reviewed risks and benefits of the procedure, as well as other options, with the patient. Bowel prep procedure was discussed with patient, as well as risks and side effects associated with the bowel prep. Patient verbalized understanding of all of the above and is in agreement to proceed. Patient will seek medical attention for any acute changes. Will monitor. * Follow up:* As scheduled, sooner if needed. Functional Status Description No Information Available Mental Status Description No Information Available Referrals Refer to Reason for Referral Status Appt Date Boyd Tang M.D. Z12.10-ENCOUNTER FOR SCREEN ING FOR MALIGNANT NEOPLASM OF INTESTINAL TRACT, UNSPECIFIED Scheduled 03/02/2021 [facility]-GI 6 [facility], [address] [address] [phone]
--- OUTSIDE RECORDS SUMMARY | 2021-03-30 09:41 | CCD | Continuity of Care Document ---
Author Author Teofilo [facility] Organization Unknown Address [address] [place] [address], [address] [place] [address] Phone [phone] Care Team Providers Care Overhead Worker Name Role Phone Dominga Grant AUTM [phone] Becky Gonsales M.D. AUTM [phone] Reena Montenegro N.P. AUTM [phone] Problems Active Problems Provider Date Otitis externa Roderick Sanchez M.D. Onset: 06/16/2016 Impacted cerumen Roderick Sanchez M.D. Onset: 06/16/2016 Deviated nasal septum [...] 3 Years Of Age Or Older (Flulaval) [address]190 Given 04/09/2010 Influenza Virus Split 3 Yrs And Above For Intramuscular Use Vital Signs Date Vital Result Comment 03/02/2021 10:24am BP Systolic 136 mmHg BP Diastolic 86 mmHg Height 72 inches 6'0" Weight 267.00 lb BMI (Body Mass Index) 36.2 kg/m2 [place] Body Weight 178 lb Weight 121.111 kg BSA (Body Surface Area) 2.41 m2 07/15/2020 2:57pm BP Systolic 120 mmHg BP Diastolic 82 mmHg Heart Rate 72 /min O2 % BldC Oximetry 96 % Body Temperature 97.1 F Height 71 inches 5'11" Weight 255.00 lb BMI (Body Mass Index) 35.6 kg/m2 [place] Body Weight 172 lb Weight 115.668 kg [...] 07/15/2021 1:00 pm - CELESTE Ingram at [facility] Pulmonary/Thoracic 03/02/2021 - NIRMAL Hurtado* Z12.11 [...] NEOPLASM OF INTESTINAL TRACT, UNSPECIFIED Scheduled 03/02/2021 [facility]-GI 6 [facility], [address] [address] [phone]
--- OUTSIDE RECORDS SUMMARY | 2021-03-30 09:41 | CCD | Continuity of Care Document ---
Author Author Teofilo [facility] Organization Unknown Address [address] [place] [address], [address] [place] [address] Phone [phone] Care Team Providers Care Human Resources District Manager Name Role Phone Dominga Grant AUTM [phone] Becky Gonsales M.D. AUTM [phone] Reena Montenegro N.P. AUTM [phone] Problems Active Problems Provider Date Otitis externa [...] 3 Years Of Age Or Older (Flulaval) [address]78 Given 04/09/2010 Influenza Virus Split 3 Yrs And Above For Intramuscular Use Vital Signs Date Vital Result Comment 03/02/2021 10:24am BP Systolic 136 mmHg BP Diastolic 86 mmHg Height 72 inches 6'0" Weight 267.00 lb BMI (Body Mass Index) 36.2 kg/m2 [place] Body Weight 178 lb Weight 121.111 kg BSA (Body Surface Area) 2.41 m2 07/15/2020 2:57pm BP Systolic 120 mmHg BP Diastolic 82 mmHg Heart Rate 72 /min O2 % BldC Oximetry 96 % Body Temperature 97.1 F Height 71 inches 5'11" Weight 255.00 lb BMI (Body Mass Index) 35.6 kg/m2 [place] Body Weight 172 lb Weight 115.668 kg [...] 07/15/2021 1:00 pm - CELESTE Ingram at [facility] Pulmonary/Thoracic 03/02/2021 - NIRMAL Hurtado* Z12.11 [...] NEOPLASM OF INTESTINAL TRACT, UNSPECIFIED Scheduled 03/02/2021 [facility]-GI 6 [facility], [address] [address] [phone]
[2021-03-30] MEDS ORDERED: propofoL 200 MG/20 ML VIAL As Ordered ONE ×4 (10:48→11:24)
[2021-03-30] MEDS ORDERED: LIDOCAINE 2% 100MG/5ML SDV (FOR ANES.) As Ordered ONE (10:48)
--- NOTE | 2021-03-30 12:13 | ROOR ---
Patient Name: Teofilo Roy Procedure Date: 03/30/2021 11:01 AM Date of : 1965 Age: 55 Room: [facility] Gender: Male Note Status: Finalized Procedure: Colonoscopy Indications: Screening for colorectal malignant neoplasm Providers: Boyd Tang MD Referring MD: [facility], Admin. Requesting Provider: Medicines: Monitored Anesthesia Care Complications: No immediate complications. Procedure: Pre-Anesthesia Assessment: - Prior to the procedure, a History and Physical was performed, and patient medications and allergies were reviewed. The patient is competent. The risks and benefits of the procedure and the sedation options and risks were discussed with the patient. All questions were answered and informed consent was obtained. Patient identification and proposed procedure were verified by the physician, the nurse and the anesthesiologist in the procedure room. Mental Status Examination: alert and oriented. Airway Examination: normal oropharyngeal airway and neck mobility. Respiratory Examination: clear to auscultation. CV Examination: normal. Prophylactic Antibiotics: The patient does not require prophylactic antibiotics. Prior Anticoagulants: The patient has taken no previous anticoagulant or antiplatelet agents. ASA Grade Assessment: II - A patient with mild systemic disease. After reviewing the risks and benefits, the patient was deemed in satisfactory condition to undergo the procedure. The anesthesia plan was to use monitored anesthesia care (MAC). Immediately prior to administration of medications, the patient was re-assessed for adequacy to receive sedatives. The heart rate, respiratory rate, oxygen saturations, blood pressure, adequacy of pulmonary ventilation, and response to care were monitored throughout the procedure. The physical status of the patient was re-assessed after the procedure. The Colonoscope was introduced through the anus and advanced to the terminal ileum, with identification of the appendiceal orifice and IC valve. The colonoscopy was performed without difficulty. The patient tolerated the procedure well. The quality of the bowel preparation was good. The terminal ileum, ileocecal valve, appendiceal orifice, and rectum were photographed. Scope insertion time was 2 minutes. Scope withdrawal time was 8 minutes. The total duration of the procedure was 10 minutes. Findings: The perianal and digital rectal examinations were normal. The terminal ileum appeared normal. A 20 mm polyp was found in the descending colon. The polyp was pedunculated. The polyp was removed with a hot snare. Resection and retrieval were complete. Verification of patient identification for the specimen was done by the physician and nurse using the patient's name, date and medical record number. Estimated blood loss was minimal. Four sessile polyps were found in the recto-sigmoid colon and ascending colon. The polyps were 3 to 6 mm in size. These polyps were removed with a hot snare. Resection and retrieval were complete. Multiple small and large-mouthed diverticula were found from sigmoid to descending colon. There was no evidence of diverticular bleeding. Non-bleeding external and internal hemorrhoids were found during retroflexion. The hemorrhoids were medium-sized. Impression: - The examined portion of the ileum was normal. - One 20 mm polyp in the descending colon, removed with a hot snare. Resected and retrieved. - Four 3 to 6 mm polyps at the recto-sigmoid colon and in the ascending colon, removed with a hot snare. Resected and retrieved. - Moderate diverticulosis from sigmoid to descending colon. There was no evidence of diverticular bleeding. - Non-bleeding external and internal hemorrhoids. Recommendation: - Patient has a contact number available for emergencies. The signs and symptoms of potential delayed complications were discussed with the patient. Return to normal activities tomorrow. Written discharge instructions were provided to the patient. - High fiber diet. - Continue present medications. - Await pathology results. - Repeat colonoscopy in 3 years for surveillance based on pathology results. - Telephone GI clinic for pathology results in 2 weeks. - Return to GI clinic in 3 years. - Return to primary care physician. Procedure Code(s): --- Professional --- 54697, Colonoscopy, flexible; with removal of tumor(s), polyp(s), or other lesion(s) by snare technique Diagnosis Code(s): --- Professional --- K63.5, Polyp of colon Z12.11, Encounter for screening for malignant neoplasm of colon K64.8, Other hemorrhoids K57.30, Diverticulosis of large intestine without perforation or abscess without bleeding CPT copyright 2019 [employer]. All rights reserved. The codes documented in this report are preliminary and upon geotechnical department manager review may be revised to meet current compliance requirements. Boyd Tang MD Boyd Tang MD 03/30/2021 12:13:18 PM Electronically signed by Boyd Tang MD Number of Addenda: 0 Note Initiated On: 03/30/2021 11:01 AM Estimated Blood Loss: Estimated blood loss was minimal.
[2021-03-30 12:18] VITALS: BP 112/72
== END 2021-03-30 12:20 | disposition home or self-care (01) ==
LOC: M OPP 09:35
PROVIDERS: ATTEND Internal Medicine Gastroenterology
DX: Z12.11 Encounter for screening for malignant neoplasm of colon (principal); K63.5 Polyp of colon; K57.30 Diverticulosis of large intestine without perforation or abscess without bleeding; K64.8 Other hemorrhoids; Z79.899 Other long term (current) drug therapy; Z91.030 Bee allergy status

== ENCOUNTER 2021-07-20 11:28 | Emergency (ER) | payer OTHER ==
[~2021-07-20] VITALS: Ht 182.9 cm; Wt 121.4 kg
[~2021-07-20 11:28] MED LIST changes: -NS 1,000 ML IV ONE
[2021-07-20] MEDS ORDERED: ASPIRIN 81 MG CHEW TABLET PO ONE (11:55)
[2021-07-20 12:41] LABS: BASO % 0.5 % (0.0-1.0); EOS % 0.1 % (0.0-3.0); HEMATOCRIT 45.8 % (42.0-52.0); HEMOGLOBIN 15.3 g/dl (13.5-17.5); LYMPH # 0.8 10^3/uL (1.5-5.0); LYMPH % 10.3 % (24.0-44.0); MEAN CORPUSCULAR HGB CONC 33.4 g/dl (32.0-36.5); MEAN CORPUSCULAR VOLUME 86.7 fl (80.0-96.0); MONO # 0.4 10^3/uL (0.0-0.8); MONO % 4.7 % (2.0-8.0); NEUTROPHILS # 6.3 10^3/uL (1.5-8.5); NEUTROPHILS % 83.3 % (36.0-66.0); PLATELET COUNT, AUTOMATED 229 10^3/uL (150-450); RED BLOOD COUNT 5.28 10^6/uL (4.30-6.10); WHITE BLOOD COUNT 7.6 10^3/uL (4.0-10.0)
[2021-07-20 13:16] LABS: ALBUMIN 3.8 GM/DL (3.2-5.2); ALT/SGPT 70 U/L (12-78); BILIRUBIN,DIRECT 0.1 MG/DL (0.0-0.2); BILIRUBIN,TOTAL 0.8 MG/DL (0.2-1.0); BLOOD UREA NITROGEN 14 MG/DL (7-18); CALCIUM LEVEL 8.8 MG/DL (8.5-10.1); CARBON DIOXIDE LEVEL 24 MEQ/L (21-32); CHLORIDE LEVEL 112 MEQ/L (98-107); CREATININE FOR GFR 1.01 MG/DL (0.70-1.30); GLOMERULAR FILTRATION RATE > 60.0 (>56); GLUCOSE, FASTING 122 MG/DL (70-100); LIPASE 127 U/L (73-393); NT-PRO BNP 19 PG/ML (<125); POTASSIUM SERUM 4.4 MEQ/L (3.5-5.1); SODIUM LEVEL 144 MEQ/L (136-145)
[2021-07-20 13:30] VITALS: BP 144/84
== END 2021-07-20 14:35 | disposition home or self-care (01) ==
LOC: EDBD 11:28 → M ED 11:28
DX: R07.9 Chest pain, unspecified (principal); F41.0 Panic disorder [episodic paroxysmal anxiety]; I10 Essential (primary) hypertension; R06.02 Shortness of breath; E78.5 Hyperlipidemia, unspecified; F43.10 Post-traumatic stress disorder, unspecified; J30.1 Allergic rhinitis due to pollen; Z79.899 Other long term (current) drug therapy; Z88.8 Allergy status to other drugs, medicaments and biological substances

== ENCOUNTER → 2021-07-23 | Outpatient (CLI) | payer OTHER | LOC: M RAD 07:15 | PROVIDERS: ATTEND Nurse Practitioner Primary Care | DX: K76.0 Fatty (change of) liver, not elsewhere classified (principal); R94.5 Abnormal results of liver function studies ==

== ENCOUNTER → 2021-10-08 | Outpatient (CLI) | payer OTHER | LOC: M RAD 13:19 | PROVIDERS: ATTEND Nurse Practitioner Family | DX: I10 Essential (primary) hypertension (principal); F43.10 Post-traumatic stress disorder, unspecified; R42 Dizziness and giddiness ==

== ENCOUNTER → 2021-10-12 | Outpatient (CLI) | payer OTHER ==
[~2021-10-12] MED LIST changes: +ISOVUE-300 61% 50ML VIAL As Ordered ONE; +LIDOCAINE 1% MDV 20ML VIAL As Ordered ONE; +TRIAMCINOLONE ACETONIDE SUSP 40 MG/ML VIAL (J3301) As Ordered ONE
== END ==
LOC: M RADPRO 12:08
PROVIDERS: ATTEND Physician Assistant
DX: M16.11 Unilateral primary osteoarthritis, right hip (principal)
CPT/HCPCS: 20610; 77002; J3301; Q9967

== ENCOUNTER → 2022-09-07 | Outpatient (REF) | payer OTHER ==
[~2022-09-07] MED LIST changes: -ISOVUE-300 61% 50ML VIAL As Ordered ONE; -LIDOCAINE 1% MDV 20ML VIAL As Ordered ONE; -TRIAMCINOLONE ACETONIDE SUSP 40 MG/ML VIAL (J3301) As Ordered ONE
== END ==
LOC: M LAB REF 17:35
PROVIDERS: ATTEND Physician Assistant Medical
DX: H60.8X2 Other otitis externa, left ear (principal)

== ENCOUNTER → 2023-01-03 | Outpatient (REF) | payer OTHER ==
[2023-01-03 13:27] LABS: BASO # 0.1 10^3/uL (0.0-0.2); BASO % 0.8 % (0.0-1.0); EOS # 0.1 10^3/uL (0.0-0.5); EOS % 1.2 % (0.0-3.0); HEMATOCRIT 46.1 % (42.0-52.0); HEMOGLOBIN 15.3 g/dl (13.5-17.5); LYMPH # 1.9 10^3/uL (1.5-5.0); LYMPH % 17.3 % (24.0-44.0); MEAN CORPUSCULAR HEMOGLOBIN 29.5 pg (27.0-33.0); MEAN CORPUSCULAR HGB CONC 33.2 g/dl (32.0-36.5); MONO # 0.6 10^3/uL (0.0-0.8); MONO % 5.7 % (2.0-8.0); NEUTROPHILS % 73.7 % (36.0-66.0); PLATELET COUNT, AUTOMATED 275 10^3/uL (150-450); RED BLOOD COUNT 5.18 10^6/uL (4.30-6.10); WHITE BLOOD COUNT 10.8 10^3/uL (4.0-10.0)
[2023-01-03 13:31] LABS: ALBUMIN 3.4 G/DL (3.2-5.2); ALKALINE PHOSPHATASE 98 U/L (46-116); ALT/SGPT 55 U/L (7.0-40); AST/SGOT 14 U/L (<34); BILIRUBIN,DIRECT 0.3 MG/DL (<0.4); BILIRUBIN,TOTAL 0.7 MG/DL (0.3-1.2); BLOOD UREA NITROGEN 16 MG/DL (9-23); CREATININE FOR GFR 0.79 MG/DL (0.70-1.30); GLOMERULAR FILTRATION RATE > 60.0 (>56); IRON (FE) 109 UG/DL (65-175); PERCENT SATURATION 39.8 % (19.7-50.0); TOTAL IRON BINDING CAPACITY 274 UG/DL (250-425); TOTAL PROTEIN 6.3 G/DL (5.7-8.2)
[2023-01-03 13:34] LABS: FERRITIN 298.9 NG/ML (10.5-307.3)
== END ==
LOC: M LABDRWAD 12:25
PROVIDERS: ATTEND Internal Medicine Gastroenterology
DX: R13.10 Dysphagia, unspecified (principal); R39.89 Other symptoms and signs involving the genitourinary system

== ENCOUNTER 2023-01-13 10:11 | Day surgery (SDC) | payer OTHER ==
[~2023-01-13] VITALS: Ht 182.9 cm; Wt 117.4 kg
[~2023-01-13 10:11] MED LIST changes: +ACET-897 PO; +MELO15TA28 PO; +NS 1,000 ML IV ONE; +OMEG12002 PO; +PRED10TA2 PO; +fentaNYL 100 MCG/2 ML INJECTION As Ordered ONE; +propofoL 200 MG/20 ML VIAL As Ordered ONE
[2023-01-13] MEDS ORDERED: propofoL 200 MG/20 ML VIAL As Ordered ONE (13:10)
[2023-01-18 13:04] VITALS: BP 134/84; TEMP 98; O2SAT 98
== END 2023-01-13 14:35 | disposition home or self-care (01) ==
LOC: M OPP 10:11
PROVIDERS: ATTEND Internal Medicine Gastroenterology
DX: Z86.010 Personal history of colon polyps (principal); K63.5 Polyp of colon; K73.0 Chronic persistent hepatitis, not elsewhere classified; K64.4 Residual hemorrhoidal skin tags; K64.8 Other hemorrhoids; K29.70 Gastritis, unspecified, without bleeding; Z79.02 Long term (current) use of antithrombotics/antiplatelets; Z79.1 Long term (current) use of non-steroidal anti-inflammatories (NSAID); Z79.52 Long term (current) use of systemic steroids; Z79.899 Other long term (current) drug therapy; Z88.1 Allergy status to other antibiotic agents; Z88.8 Allergy status to other drugs, medicaments and biological substances; Z91.030 Bee allergy status
CPT/HCPCS: 43239; 45385; 88305; J3010

== ENCOUNTER 2023-01-25 18:29 | Observation (INO) | payer OTHER ==
[~2023-01-25] VITALS: Ht 182.9 cm; Wt 119.0 kg
[~2023-01-25 18:29] MED LIST changes: -NS 1,000 ML IV ONE; -fentaNYL 100 MCG/2 ML INJECTION As Ordered ONE; -propofoL 200 MG/20 ML VIAL As Ordered ONE
[2023-01-25 19:09] LABS: VENOUS BASE EXCESS -0.5 (-2.0-2.0); VENOUS HCO3 24.2 MMOL/L (23.0-27.0); VENOUS O2 SATURATION 75.2 % (60.0-80.0); VENOUS PARTIAL PRESSURE CO2 40.1 mmHg (38.0-50.0); VENOUS PARTIAL PRESSURE O2 38.5 mmHg (30.0-50.0); VENOUS PH 7.399 UNITS (7.330-7.430); VENOUS STANDARD HCO3 23.5 MMOL/L; VENOUS TOTAL CO2 25.5 MMOL/L (24.0-28.0)
[2023-01-25 19:27] LABS: BASO # 0.1 10^3/uL (0.0-0.2); BASO % 0.3 % (0.0-1.0); EOS # 0.1 10^3/uL (0.0-0.5); EOS % 0.7 % (0.0-3.0); HEMATOCRIT 44.8 % (42.0-52.0); HEMOGLOBIN 14.8 g/dl (13.5-17.5); LYMPH % 6.3 % (24.0-44.0); MEAN CORPUSCULAR HEMOGLOBIN 28.8 pg (27.0-33.0); MEAN CORPUSCULAR VOLUME 87.2 fl (80.0-96.0); MONO # 0.8 10^3/uL (0.0-0.8); MONO % 5.3 % (2.0-8.0); NEUTROPHILS # 13.7 10^3/uL (1.5-8.5); NEUTROPHILS % 86.8 % (36.0-66.0); PLATELET COUNT, AUTOMATED 334 10^3/uL (150-450); RED BLOOD COUNT 5.14 10^6/uL (4.30-6.10); WHITE BLOOD COUNT 15.8 10^3/uL (4.0-10.0)
[2023-01-25 19:37] LABS: ALBUMIN 3.3 G/DL (3.2-5.2); ALKALINE PHOSPHATASE 94 U/L (46-116); ALT/SGPT 33 U/L (7.0-40); AST/SGOT 18 U/L (<34); BILIRUBIN,DIRECT 0.2 MG/DL (<0.4); BILIRUBIN,TOTAL 0.6 MG/DL (0.3-1.2); BLOOD UREA NITROGEN 11 MG/DL (9-23); CALCIUM LEVEL 8.7 MG/DL (8.5-10.1); CARBON DIOXIDE LEVEL 26 MMOL/L (20-31); CHLORIDE LEVEL 106 MMOL/L (98-107); CREATININE FOR GFR 0.88 MG/DL (0.70-1.30); GLOMERULAR FILTRATION RATE > 60.0 (>56); GLUCOSE, FASTING 133 MG/DL (60-100); OSMOLALITY SERUM 288 MOSM/KG (275-295); SODIUM LEVEL 139 MMOL/L (136-145); TOTAL PROTEIN 6.7 G/DL (5.7-8.2)
[2023-01-25] MEDS ORDERED: ISOVUE-370 76% 100ML VIAL As Ordered ONE (19:52)
[2023-01-25 20:15] LABS: MAGNESIUM LEVEL 1.8 MG/DL (1.8-2.4)
[2023-01-25 22:10] LABS: RSV AMPLIFICATION NEGATIVE (NEGATIVE)
[2023-01-25 22:45] LABS: CPK CREATINE PHOSPHOKINASE 89 U/L (46-171); MB/CK RELATIVE INDEX 1.12 (< OR =4)
[2023-01-25] MEDS ORDERED: MECLIZINE 25 MG TABLET PO ONE (23:20)
[2023-01-25] MEDS ORDERED: ACETAMINOPHEN TAB 650MG DOSE (2X325MG) PO PRN (23:45)
[2023-01-26] MEDS ORDERED: GABA-1171 PO (00:38)
[2023-01-26] MEDS ORDERED: OMEG10002 PO (00:38)
[2023-01-26] MEDS ORDERED: [UNRECOGNIZED DRUG - CODE] TEETH (00:38)
[2023-01-26] MEDS ORDERED: OMEP40CA5 PO (00:38)
[2023-01-26] MEDS ORDERED: MUSC1CRE EXT (00:38)
[2023-01-26] MEDS ORDERED: VITMTA PO (00:38)
[2023-01-26] MEDS ORDERED: ACET-897 PO (00:38)
[2023-01-26] MEDS ORDERED: D 50CAP2 PO (00:38)
[2023-01-26] MEDS ORDERED: CLON0.5T2 PO (00:38)
[2023-01-26] MEDS ORDERED: ATOR80TA59 PO (00:38)
[2023-01-26] MEDS ORDERED: TEST200I14 IM (00:38)
[2023-01-26] MEDS ORDERED: HOME MED LIST COMPLETE! XX SCH (00:40)
[2023-01-26] MEDS ORDERED: MECLIZINE 25 MG TABLET PO PRN (02:45)
[2023-01-26] MEDS ORDERED: clonazePAM 0.5 MG TAB PO PRN (07:10)
[2023-01-26 07:37] LABS: HEMATOCRIT 48.5 % (42.0-52.0); HEMOGLOBIN 15.8 g/dl (13.5-17.5); MEAN CORPUSCULAR HEMOGLOBIN 29.2 pg (27.0-33.0); MEAN CORPUSCULAR HGB CONC 32.6 g/dl (32.0-36.5); MEAN CORPUSCULAR VOLUME 89.5 fl (80.0-96.0); PLATELET COUNT, AUTOMATED 298 10^3/uL (150-450); RED BLOOD COUNT 5.42 10^6/uL (4.30-6.10); WHITE BLOOD COUNT 15.7 10^3/uL (4.0-10.0)
[2023-01-26 08:03] LABS: BLOOD UREA NITROGEN 12 MG/DL (9-23); CALCIUM LEVEL 9.1 MG/DL (8.5-10.1); CARBON DIOXIDE LEVEL 25 MMOL/L (20-31); CHLORIDE LEVEL 107 MMOL/L (98-107); CREATININE FOR GFR 0.88 MG/DL (0.70-1.30); GLOMERULAR FILTRATION RATE > 60.0 (>56); GLUCOSE, FASTING 143 MG/DL (60-100); POTASSIUM SERUM 4.2 MMOL/L (3.5-5.1); SODIUM LEVEL 141 MMOL/L (136-145)
[2023-01-26] MEDS ORDERED: GABAPENTIN 100 MG CAP PO SCH (09:00)
[2023-01-26] MEDS ORDERED: OMEPRAZOLE 20MG CAP PO SCH (09:00)
[2023-01-26] MEDS ORDERED: MECL-86 PO (10:52)
[2023-01-26 14:20] VITALS: BP 142/92; TEMP 97.6; O2SAT 96
[2023-01-26] MEDS ORDERED: OMEGA-3 1000MG CAPSULE PO SCH (21:00)
[2023-01-26] MEDS ORDERED: ATORVASTATIN 20 MG TAB PO SCH (21:00)
[2023-01-26] MEDS ORDERED: MULTIVITAMINS/MINERALS THERAP 1 TAB PO SCH (21:00)
== END 2023-01-26 15:21 | disposition home or self-care (01) ==
LOC: M ED 18:29 → EDBD 18:29 → M ED INP 18:30
PROVIDERS: ADMIT Internal Medicine; ATTEND Internal Medicine
DX: H81.10 Benign paroxysmal vertigo, unspecified ear (principal); H83.09 Labyrinthitis, unspecified ear; D49.512 Neoplasm of unspecified behavior of left kidney; F43.10 Post-traumatic stress disorder, unspecified; E78.00 Pure hypercholesterolemia, unspecified; M79.2 Neuralgia and neuritis, unspecified; K21.9 Gastro-esophageal reflux disease without esophagitis; G47.33 Obstructive sleep apnea (adult) (pediatric); Z79.899 Other long term (current) drug therapy; Z91.030 Bee allergy status; Z88.8 Allergy status to other drugs, medicaments and biological substances
CPT/HCPCS: 36415; 70450; 71045; 71275; 74174; 80048; 80076; 81001; 82140; 82550; 82553; 82803; 83605; 83735; 83930; 84443; 84484; 85025; 85027; 85730; 87040; 87631; 93005; 93041; 94760; 99285; Q9967

== ENCOUNTER → 2023-01-31 | Outpatient (CLI) | payer OTHER ==
[~2023-01-31] MED LIST changes: +ATOR80TA59 PO; +D 50CAP2 PO; +GABA-1171 PO; +MECL-86 PO; +MUSC1CRE EXT; +OMEG10002 PO; +OMEP40CA5 PO; +TEST200I14 IM; +VITMTA PO; +[UNRECOGNIZED DRUG - CODE] TEETH
== END ==
LOC: M RAD 13:52 → M WHC 13:52
PROVIDERS: ATTEND Registered Nurse
DX: R59.0 Localized enlarged lymph nodes (principal)

== ENCOUNTER → 2023-02-10 | Outpatient (REF) | payer OTHER ==
[~2023-02-10] MED LIST changes: +FAMO1TAB11 PO; +IBUP-1022 PO; +METF500T13 PO; +SUCR1SS PO
[2023-02-10 18:07] LABS: BASO # 0.1 10^3/uL (0.0-0.2); BASO % 0.4 % (0.0-1.0); EOS # 0.1 10^3/uL (0.0-0.5); EOS % 0.8 % (0.0-3.0); HEMATOCRIT 47.7 % (42.0-52.0); HEMOGLOBIN 15.7 g/dl (13.5-17.5); LYMPH % 13.2 % (24.0-44.0); MEAN CORPUSCULAR HEMOGLOBIN 29.2 pg (27.0-33.0); MEAN CORPUSCULAR HGB CONC 32.9 g/dl (32.0-36.5); MEAN CORPUSCULAR VOLUME 88.7 fl (80.0-96.0); MONO # 0.5 10^3/uL (0.0-0.8); MONO % 3.2 % (2.0-8.0); NEUTROPHILS # 12.1 10^3/uL (1.5-8.5); NEUTROPHILS % 81.8 % (36.0-66.0); PLATELET COUNT, AUTOMATED 336 10^3/uL (150-450); RED BLOOD COUNT 5.38 10^6/uL (4.30-6.10); WHITE BLOOD COUNT 14.8 10^3/uL (4.0-10.0)
[2023-02-10 18:28] LABS: ALBUMIN 3.3 G/DL (3.2-5.2); ALKALINE PHOSPHATASE 112 U/L (46-116); ALT/SGPT 40 U/L (7.0-40); AST/SGOT 12 U/L (<34); BILIRUBIN,TOTAL 0.9 MG/DL (0.3-1.2); BLOOD UREA NITROGEN 8 MG/DL (9-23); CALCIUM LEVEL 8.9 MG/DL (8.5-10.1); CARBON DIOXIDE LEVEL 26 MMOL/L (20-31); CHLORIDE LEVEL 104 MMOL/L (98-107); CREATININE FOR GFR 0.88 MG/DL (0.70-1.30); GLOMERULAR FILTRATION RATE > 60.0 (>56); GLUCOSE, FASTING 157 MG/DL (60-100); POTASSIUM SERUM 4.2 MMOL/L (3.5-5.1); SODIUM LEVEL 139 MMOL/L (136-145); TOTAL PROTEIN 6.9 G/DL (5.7-8.2)
== END ==
LOC: M SFHCADAM 16:13
PROVIDERS: ATTEND Registered Nurse
DX: Z01.818 Encounter for other preprocedural examination (principal)

== ENCOUNTER → 2023-03-07 | Outpatient (REF) | payer OTHER ==
[~2023-03-07] MED LIST changes: +COLA100C5 PO; +PERCOCET PO
[2023-03-07 16:35] LABS: HEMATOCRIT 46.5 % (42.0-52.0); HEMOGLOBIN 14.9 g/dl (13.5-17.5); MEAN CORPUSCULAR HEMOGLOBIN 28.7 pg (27.0-33.0); MEAN CORPUSCULAR VOLUME 89.6 fl (80.0-96.0); PLATELET COUNT, AUTOMATED 294 10^3/uL (150-450); RED BLOOD COUNT 5.19 10^6/uL (4.30-6.10); WHITE BLOOD COUNT 9.2 10^3/uL (4.0-10.0)
[2023-03-07 17:03] LABS: CALCIUM LEVEL 9.3 MG/DL (8.5-10.1); CREATININE FOR GFR 1.46 MG/DL (0.70-1.30); GLOMERULAR FILTRATION RATE 52.8 (>56); POTASSIUM SERUM 4.6 MMOL/L (3.5-5.1)
== END ==
LOC: M LABSMT 14:15
PROVIDERS: ATTEND Urology
DX: C64.2 Malignant neoplasm of left kidney, except renal pelvis (principal); Z90.5 Acquired absence of kidney

== ENCOUNTER → 2023-06-21 | Outpatient (REF) | payer OTHER | LOC: M SFHCDERM 17:44 | PROVIDERS: ATTEND Physician Assistant | DX: C44.41 Basal cell carcinoma of skin of scalp and neck (principal) ==

== ENCOUNTER 2023-08-01 10:38 | Day surgery (SDC) | payer OTHER ==
[~2023-08-01] VITALS: Ht 182.9 cm; Wt 123.5 kg
[~2023-08-01 10:38] MED LIST changes: +THERTAB52 PO
[2023-08-01] MEDS ORDERED: LIDOCAINE 2% 100MG/5ML SDV (FOR ANES.) As Ordered ONE (12:09)
[2023-08-01] MEDS: LR 1,000 ML IV SCH (12:09)
[2023-08-01] MEDS ORDERED: ONDANSETRON 4MG 2ML VIAL As Ordered ONE (12:09)
[2023-08-01] MEDS ORDERED: propofoL 200 MG/20 ML VIAL As Ordered ONE (12:09)
[2023-08-01] MEDS ORDERED: MIDAZOLAM INJ 2MG/2ML VIAL As Ordered ONE (12:09)
[2023-08-01] MEDS ORDERED: ROCURONIUM BROMIDE 50MG/5ML VIAL As Ordered ONE (12:09)
[2023-08-01] MEDS ORDERED: KETOROLAC 60MG 2ML VIAL As Ordered ONE (12:15)
[2023-08-01] MEDS ORDERED: SUCCINYLCHOLINE 100MG/5ML SYRINGE As Ordered ONE (12:51)
[2023-08-01] MEDS: LIDOCAINE W/EPINEPHRINE 1% 20ML VIAL As Ordered ONE (12:53)
[2023-08-01] MEDS ORDERED: LR 1,000 ML IV SCH (13:05)
[2023-08-01] MEDS ORDERED: ONDANSETRON 4MG 2ML VIAL IV PRN (13:05)
[2023-08-01] MEDS ORDERED: fentaNYL 100 MCG/2 ML INJECTION IV PRN (13:05)
[2023-08-01] MEDS ORDERED: HYDROMORPHONE HCL 0.5 MG/ 0.5 ML SYRINGE IV PRN (13:05)
[2023-08-01] MEDS ORDERED: dexmedeTOMIDine (4MCG/ML)200MCG/50ML BTL (PRECEDEX) As Ordered ONE (13:27)
[2023-08-01] MEDS ORDERED: fentaNYL 100 MCG/2 ML INJECTION As Ordered ONE (13:27)
[2023-08-01] MEDS: oxyCODONE 5MG TAB PO PRN (13:31)
[2023-08-01 14:40] VITALS: BP 132/77; TEMP 97.7; O2SAT 96
== END 2023-08-01 14:58 | disposition home or self-care (01) ==
LOC: M SDC 10:38
PROVIDERS: ATTEND Otolaryngology
DX: D10.39 Benign neoplasm of other parts of mouth (principal); I10 Essential (primary) hypertension; G47.30 Sleep apnea, unspecified; Z79.899 Other long term (current) drug therapy; Z90.5 Acquired absence of kidney
CPT/HCPCS: 42140; 88305; J0330; J1100; J1885; J2250; J2405; J3010

== ENCOUNTER → 2023-08-09 | Outpatient (CLI) | payer OTHER | LOC: M SOG 07:57 | PROVIDERS: ATTEND Orthopaedic Surgery | DX: M25.511 Pain in right shoulder (principal); Z53.9 Procedure and treatment not carried out, unspecified reason ==

== ENCOUNTER → 2023-08-10 | Outpatient (CLI) | payer OTHER | LOC: M RAD 14:04 | PROVIDERS: ATTEND Otolaryngology | DX: R22.1 Localized swelling, mass and lump, neck (principal); Z53.9 Procedure and treatment not carried out, unspecified reason ==

== ENCOUNTER → 2023-08-15 | Outpatient (CLI) | payer OTHER | LOC: M SOG 08:00 | PROVIDERS: ATTEND Orthopaedic Surgery | DX: M25.511 Pain in right shoulder (principal) ==

== ENCOUNTER → 2023-09-04 | Outpatient (REF) | payer OTHER ==
[2023-09-04 13:05] LABS: CALCIUM LEVEL 9.2 MG/DL (8.5-10.1); CREATININE FOR GFR 1.36 MG/DL (0.70-1.30); GLOMERULAR FILTRATION RATE 57.1 (>56); POTASSIUM SERUM 4.7 MMOL/L (3.5-5.1)
== END ==
LOC: M SFHCADAM 09:13
PROVIDERS: ATTEND Urology
DX: C64.2 Malignant neoplasm of left kidney, except renal pelvis (principal); Z90.5 Acquired absence of kidney

== ENCOUNTER → 2023-09-05 | Outpatient (CLI) | payer OTHER ==
[~2023-09-05] MED LIST changes: +ISOVUE-370 76% 100ML VIAL As Ordered ONE
== END ==
LOC: M RAD 09:36
PROVIDERS: ATTEND Urology
DX: C64.2 Malignant neoplasm of left kidney, except renal pelvis (principal); Z90.5 Acquired absence of kidney; J84.10 Pulmonary fibrosis, unspecified; K76.0 Fatty (change of) liver, not elsewhere classified; K76.89 Other specified diseases of liver; N28.1 Cyst of kidney, acquired; I70.0 Atherosclerosis of aorta; K57.90 Diverticulosis of intestine, part unspecified, without perforation or abscess without bleeding
CPT/HCPCS: 74170; Q9967

== ENCOUNTER → 2023-09-18 | Outpatient (CLI) | payer OTHER ==
[~2023-09-18] MED LIST changes: -ISOVUE-370 76% 100ML VIAL As Ordered ONE
== END ==
LOC: M RAD 11:47
PROVIDERS: ATTEND Urology
DX: C64.2 Malignant neoplasm of left kidney, except renal pelvis (principal); Z90.5 Acquired absence of kidney

== ENCOUNTER → 2023-11-20 | Outpatient (CLI) | payer OTHER | LOC: M PLAIMG 10:41 | PROVIDERS: ATTEND Internal Medicine | DX: M47.26 Other spondylosis with radiculopathy, lumbar region (principal); M51.16 Intervertebral disc disorders with radiculopathy, lumbar region ==

== ENCOUNTER → 2024-08-13 | Outpatient (REF) | payer OTHER ==
[~2024-08-13] MED LIST changes: +METO1TAB32 PO; +OMEP-173 PO; +PRAV20TA2 PO
[2024-08-13 15:07] LABS: FOLATE 17.4 NG/ML (>5.4)
== END ==
LOC: M LABDRWAD 13:31
PROVIDERS: ATTEND Psychiatry & Neurology Neurology
DX: R42 Dizziness and giddiness (principal); E56.0 Deficiency of vitamin E; D51.9 Vitamin B12 deficiency anemia, unspecified; E53.9 Vitamin B deficiency, unspecified

== ENCOUNTER 2024-08-20 12:02 | Day surgery (SDC) | payer OTHER ==
[~2024-08-20] VITALS: Ht 182.9 cm; Wt 122.3 kg
[2024-08-20] MEDS ORDERED: propofoL 500 MG/50 ML VIAL As Ordered ONE (12:39)
[2024-08-20] MEDS ORDERED: GLYCOPYRROLATE INJ 0.2 MG/ML 2 ML VIAL As Ordered ONE (12:40)
[2024-08-20] MEDS ORDERED: LIDOCAINE 2% 100MG/5ML SDV (FOR ANES.) As Ordered ONE (12:40)
[2024-08-20] MEDS ORDERED: fentaNYL 100 MCG/2 ML INJECTION As Ordered ONE (12:40)
[2024-08-20] MEDS ORDERED: propofoL 200 MG/20 ML VIAL As Ordered ONE (14:34)
[2024-08-20 15:01] VITALS: TEMP 98.2
[2024-08-20 15:28] VITALS: BP 119/69; O2SAT 95
== END 2024-08-20 15:38 | disposition home or self-care (01) ==
LOC: M OPP 12:02
PROVIDERS: ATTEND Internal Medicine Gastroenterology
DX: K57.30 Diverticulosis of large intestine without perforation or abscess without bleeding (principal); K64.8 Other hemorrhoids; Z86.0101 Personal history of adenomatous and serrated colon polyps; K29.70 Gastritis, unspecified, without bleeding; G47.30 Sleep apnea, unspecified; Z88.1 Allergy status to other antibiotic agents; Z88.8 Allergy status to other drugs, medicaments and biological substances; Z91.030 Bee allergy status; Z79.899 Other long term (current) drug therapy
CPT/HCPCS: 43239; 45378; 88305; J1596; J3010

== ENCOUNTER → 2024-08-28 | Outpatient (REF) | payer OTHER | LOC: M SFHCDERM 17:49 | PROVIDERS: ATTEND Physician Assistant | DX: L28.1 Prurigo nodularis (principal) ==

== ENCOUNTER → 2024-09-12 | Outpatient (CLI) | payer OTHER ==
[~2024-09-12] MED LIST changes: +ISOVUE-370 76% 100ML VIAL As Ordered ONE
[2024-09-12 08:45] LABS: CALCIUM LEVEL 9.4 MG/DL (8.3-10.6); CREATININE FOR GFR 1.41 MG/DL (0.70-1.30); GLOMERULAR FILTRATION RATE 57.1 (>49); POTASSIUM SERUM 4.5 MMOL/L (3.5-5.1)
== END ==
LOC: M RAD 07:54
PROVIDERS: ATTEND Urology
DX: C64.2 Malignant neoplasm of left kidney, except renal pelvis (principal); Z90.5 Acquired absence of kidney; J84.10 Pulmonary fibrosis, unspecified; K76.89 Other specified diseases of liver; N28.1 Cyst of kidney, acquired
CPT/HCPCS: 36415; 71046; 74170; 80048; Q9967

== ENCOUNTER → 2024-12-10 | Outpatient (CLI) | payer OTHER ==
[~2024-12-10] MED LIST changes: -ISOVUE-370 76% 100ML VIAL As Ordered ONE; -PRAV20TA2 PO; +PRAV20TA78 PO
[2024-12-10 13:44] LABS: CALCIUM LEVEL 9.3 MG/DL (8.3-10.6); CARBON DIOXIDE LEVEL 26.0 MMOL/L (20-31); CHLORIDE LEVEL 102.0 MMOL/L (98-107); CREATININE FOR GFR 1.72 MG/DL (0.70-1.30); GLOMERULAR FILTRATION RATE 45.0 (>49); POTASSIUM SERUM 4.8 MMOL/L (3.5-5.1); SODIUM LEVEL 139.0 MMOL/L (136-145)
== END ==
LOC: M LAB 12:44
PROVIDERS: ATTEND Nurse Practitioner Family
DX: C64.2 Malignant neoplasm of left kidney, except renal pelvis (principal)

== ENCOUNTER → 2025-02-12 | Outpatient (CLI) | payer OTHER ==
[~2025-02-12] MED LIST changes: -IBUP-1022 PO; +IBUP600T42 PO
== END ==
LOC: M RAD 15:04
PROVIDERS: ATTEND Internal Medicine
DX: N18.9 Chronic kidney disease, unspecified (principal)